=== PATIENT | male | born 1965 | race Caucasian/White ===

== ENCOUNTER 2022-06-08 00:07 | Day surgery (SDC) | payer BC, SELFPAY ==
[2022-05-27 12:38] VITALS: BMI 23.8
--- NOTE | 2022-06-08 07:29 | P.PNAN_ITS ---
Anes - Initial Pre Proc Eval Procedure: Operation Date: 06/08/22 11:00 Proposed Procedures p Screening Colonoscopy - Nikhil Means MD Date/Time: 06/08/22 07:29 Surgeon: Nikhil Means MD Pre Op Diagnosis: neoplasm, hx of colon polyps, family hx colon ca Patient Data Age: 56 Gender: M Height: 1.83 m Weight: 79.5 kg Allergies Allergy/AdvReac Type Severity Reaction Status Date / Time No Known Allergies Allergy Unknown Verified 06/08/22 09:51 Home Medications Medication Instructions Recorded Confirmed Type sodium sul 1.479 gram-potas ch See Rx Instructions PO PER PKG DIR 05/06/22 05/27/22 Rx 0.188 gram-magnes sul 0.225 gram #24 tabs tablet (Sutab) famotidine 20 mg tablet (Pepcid AC) 20 mg PO PRN PRN Acid Reflux 05/27/22 05/27/22 History Patient hx anesthesia problems: none Family hx anesthesia problems: none Results Review: All pre-operative results and documents have been reviewed as part of the pre- operative evaluation. [facility] Past Medical History Medical History (Updated 06/08/22 @ 09:57 by Nikhil Means MD) Engages in vaping Family History Family History Mother Carcinoma of colon Social History Social History Smoking packs per day: 1.5 Smoking cigarettes per day: 30.0 Years smoked: 30 Smoking pack-years: 45.00 Smoking status: Former smoker Tobacco type: cigarettes and e-cigarettes/vaping Additional smoking assessment comments: vapes post smoking cessasion Alcohol intake: former Alcohol use details: none for 3 years; drank weekly prior to that Substance use: never Substance use type: does not use Living arrangements: with family Spiritual care concerns: No Anes - Eval Final PreProcedure Day of Procedure 06/08/22 07:29 Patient weight: normal Heart: regular rate and rhythm Lungs: clear to auscultation and normal air movement Airway: Mallampati scale class II Neurological: alert and oriented Last oral intake: >/= 8 hours ASA classification: II Emergent: no Anesthetic plan: proceed Anesthesia type and monitoring: general GIVS Results Review: All pre-operative results and documents have been reviewed as part of the pre- operative evaluation. Informed Consent: The patient's anesthetic plan and its attendant risks and benefits were discussed with the patient/family/POA. Questions were solicited and answers provided to the satisfaction of the patient/family/POA.
[2022-06-08 09:51] VITALS: BP 147/103; PULSE 69; RESP 18; TEMP 36.2; O2SAT 97
--- NOTE | 2022-06-08 09:55 | P.HP_ITS ---
H&P: HPI History of Present Illness Date/Time: 06/08/22 09:55 Chief Complaint: History of colon polyps. Narrative: This is a 56-year-old white male patient presents for screening colonoscopy. Patient's current weight appetite and bowel movements are normal. He denies abdominal pain. Patient has had no bleeding. Family history is significant his father had colon polyps his mother had colon cancer. Patient's last colonoscopy 5 years ago in 2018 revealed a small benign adenomatous colon polyp that was removed. Patient presents today for follow-up surveillance colonoscopy. Review of Systems Review of Systems: Review of systems noncontributory. [facility] Past Medical History Medical History (Updated 06/08/22 @ 09:57 by Nikhil Means MD) Engages in vaping Family History Family History Mother Carcinoma of colon Social History Social History Smoking packs per day: 1.5 Smoking cigarettes per day: 30.0 Years smoked: 30 Smoking pack-years: 45.00 Smoking status: Former smoker Tobacco type: cigarettes and e-cigarettes/vaping Additional smoking assessment comments: vapes post smoking cessasion Alcohol intake: former Alcohol use details: none for 3 years; drank weekly prior to that Substance use: never Substance use type: does not use Living arrangements: with family Spiritual care concerns: No Meds Home Medications and Allergies Home Medications Medication Instructions Recorded Confirmed Type sodium sul 1.479 gram-potas ch See Rx Instructions PO PER PKG DIR 05/06/22 05/27/22 Rx 0.188 gram-magnes sul 0.225 gram #24 tabs tablet (Sutab) famotidine 20 mg tablet (Pepcid AC) 20 mg PO PRN PRN Acid Reflux 05/27/22 05/27/22 History Allergies Allergy/AdvReac Type Severity Reaction Status Date / Time No Known Allergies Allergy Unknown Verified 06/08/22 09:51 Vital Signs Vital Signs - 24 hr 06/08/22 09:51 Temperature 97.2 F L Pulse Rate 69 Respiratory Rate 18 Blood Pressure 147/103 H Pulse Oximetry 97 Oxygen Delivery Room Air Exam Narrative: Physical exam reveals patient to be alert. Vital signs stable. HEENT exam is unremarkable. Patient is anicteric. Lungs are clear to auscultation and percussion. Heart is without murmur or extra sounds. Abdominal exam bowel sounds are present soft nontender with no organomegaly. Digital external rectal exam is normal. Assessment and Plan Assessment and plan (1) History of colon polyps: Code(s): Z86.010 - Personal history of colonic polyps Status: Acute Assessment and Plan: Patient has a prior history of colon polyps removed 2018. Plan is for surveillance colonoscopy at least at 5 year intervals for now. (2) Family history of colon cancer in mother: Code(s): Z80.0 - Family history of malignant neoplasm of digestive organs Status: Acute Assessment and Plan: Patient's mother had colon cancer, his father had colon polyps. Plan is for surveillance colonoscopy at 5 year intervals. Further recommendations may be given after endoscopy.
[2022-06-08] MEDS: LACTATED RINGERS 1,000 ML 150 ML IV CONT (10:03)
[2022-06-08 10:49] VITALS: BP 128/84; PULSE 62; RESP 18; O2SAT 96
[2022-06-08 10:59] VITALS: BP 152/94; PULSE 68; RESP 21; O2SAT 98
[2022-06-08 11:09] VITALS: BP 156/99; PULSE 63; RESP 18; O2SAT 97
== END 2022-06-08 11:17 | disposition home or self-care (01) ==
PROVIDERS: PCP Physician Assistant; Visit Provider Internal Medicine Gastroenterology
PROC: 0DJD8ZZ Inspection of Lower Intestinal Tract, Via Natural or Artificial Opening Endoscopic (ICD-10-PCS; CPT 45378; principal; 2022-06-08 11:00)
DX: Z12.11 Encounter for screening for malignant neoplasm of colon (principal); K63.5 Polyp of colon; K64.8 Other hemorrhoids; Z80.0 Family history of malignant neoplasm of digestive organs; Z83.71 Family history of colonic polyps; F17.290 Nicotine dependence, other tobacco product, uncomplicated
CPT/HCPCS: 45385; 88305; J2704; J7120